=== PATIENT | female | born 1980 | race Caucasian/White ===

== ENCOUNTER 2017-06-04 19:49 | Inpatient (IN) | payer OTHER, BC ==
[~2017-06-04] VITALS: Ht 175.3 cm; Wt 61.0 kg
--- NOTE | ~2017-06-04 | HC ---
[facility] [address] [address] [place] [address] CONSULTATION Name: ENRIQUE LEACH NILO Room #: 219-P [facility] IN M.R.#: [id number] Admission: 06/04/17 Attend Phys: Osorio Smith MD Discharge: Date of : 84 Report #: [id number] THIS REPORT FOR: //name// CC: Osorio Smith NO PCP Matt Arshad DATE OF SERVICE: 06/05/2017 REASON FOR CONSULTATION: I was asked to evaluate concerning leukocytosis and pulmonary infiltrate in the setting of seizure. HISTORY OF PRESENT ILLNESS: The patient was a 36-year-old, with steroid-dependent asthma, fibromyalgia, who has presented with seizure yesterday, lasted 2-3 minutes. was home and witnessed the event. By the time EMS came, she was awake, but amnestic to the event. No tongue biting or loss of bowel and bladder function. Prior to this, she has had one seizure when she was 12 years old. She has longstanding asthma that has required every other day methylprednisolone dosing along with inhalers. She has had volume reduction surgery of the right lung in 2005 for large bleb. She has had further complications of her prednisone including cataracts, osteoporosis, bilateral total knee arthroplasties, diabetes. She has had a DVT and has longstanding fibromyalgia. No travel. No HIV risk factors. Stays at home and has 2 children and . She has not felt well for about 2 months. She was unable to describe specifically her symptoms, but she does note that her fibromyalgia has been flaring up along with nausea, occasional vomiting, occasional diarrhea, minimal dysuria. No back or flank pain. Temperature up to 99 degrees. REVIEW OF SYSTEMS: Notes mild headache. No postnasal drip. No pharyngitis symptoms. No pleuritic chest pain. No worsening of her asthma symptoms. No chest pain or palpitations. No vaginal discharge, rash, or arthritis. ALLERGIES: None known. MEDICATIONS: Xopenex, Symbicort, prednisone 6 mg every other day, Xarelto, Glucophage, Tudorza, Ultram, clonazepam, spironolactone, magnesium, Fetzima, Lipitor, diltiazem. PAST MEDICAL HISTORY: Asthma, cataracts, lung reduction surgery, osteoporosis, bilateral total knee arthroplasties, fibromyalgia, diabetes, anxiety, depression, seizure, DVT after knee surgery, UTI. FAMILY HISTORY: Noncontributory. [address] [address] CONSULTATION Name: ENRIQUE LEACH NILO Room #: 219-P [facility] IN .R.#: [id number] Admission: 06/04/17 Attend Phys: Osorio Smith MD Discharge: Date of : 84 Report #: [id number] SOCIAL HISTORY: Minimal alcohol use. Nonsmoker. REVIEW OF SYSTEMS: As noted above. PHYSICAL EXAMINATION: VITAL SIGNS: Afebrile, hemodynamically stable. GENERAL: Alert and cooperative and pleasant, in no acute distress. Mild obesity. HEENT: Unremarkable. NECK: Supple, no adenopathy. LUNGS: Clear. HEART: Regular, without murmur. ABDOMEN: Soft and nontender. No hepatosplenomegaly or mass. EXTREMITIES: Unremarkable. NEUROLOGIC: Nonfocal. LABORATORY STUDIES: Sodium 142, potassium 3.5, bicarbonate 25, creatinine 0.6. Liver function test normal. Hemoglobin 11.5, platelet count and white count 12.6. Differential unremarkable. TSH 4.9. Urinalysis 6-15 wbc's, no rbc's, many bacteria. Urine culture, gram-negative bacilli. Blood cultures negative. Influenza antigen negative. CT scan of the head showed mild pansinusitis. CT of the chest showed right basilar infiltrate without consolidation. IMPRESSION: A 36-year-old with underlying steroid-dependent asthma and fibromyalgia, presents with seizure. She has leukocytosis, asymptomatic bacteriuria, hypothyroid, chronic sinusitis. Cause of her leukocytosis may well be related to her seizure or possibly her steroid use versus pneumonia. Pneumonia would either be from aspiration following her seizure or possibly predating the seizure with community-acquired pneumonia. She, however, did not give any symptoms of pneumonia leading up to this. She had more of a nondescript exacerbation of her fibromyalgia. It is evident, she did not improve with antibiotics. I doubt influenza in this situation. No other family members have been ill and she was not toxic. RECOMMENDATION: Would continue with Unasyn to cover both sinuses, possible aspiration, and urinary tract. I agree with Neurology workup including MRI scan. It appears that she has had significant side effect issues with her chronic prednisone use. Would have followup with Pulmonary Medicine to see if there is any way of reducing her steroid usage. We will need to follow her chest x-ray and we will await final culture results from blood and urine before recommending oral antibiotic therapy. <ELECTRONICALLY SIGNED> By: Richie Pierce MD 06/06/17 0901 [id number] [id number] Richie Pierce MD /nt
--- NOTE | ~2017-06-04 | HC ---
[facility] [place] [address] [place] [address] CONSULTATION Name: ENRIQUE LEACH NILO Room #: 219-P [facility] IN M.R.#: [id number] Admission: 06/04/17 Attend Phys: Osorio Smith MD Discharge: 06/06/17 Date of : 84 Report #: [id number] THIS REPORT FOR: //name// CC: Osorio Smith NO [facility] Matt Arshad DATE OF SERVICE: 06/05/2017 HISTORY OF PRESENT ILLNESS: This is a 36-year-old female patient who was evaluated by me for a new onset seizure. I reviewed multiple notes in this patient. Apparently, this patient has not been feeling well at least for a few weeks. Significant other than described, this patient having what looks like stiffness, eyes rolling back and a seizure lasting about 2-3 minutes. It came spontaneously without any trauma. She was confused after that, but she had returned back to her baseline. REVIEW OF SYSTEMS: Indicate that she did have a seizure as a child. Not much description is available. It was associated with bronchial asthma, but was not associated with fever. She was never on any anticonvulsant. She feels she has a flu, but she does not have a flu. She does have a history of GI tract infection. She has pain syndrome, at one time, she used to be on gabapentin, but now this patient is on tramadol. She is on tramadol for some time. She does have a history of DVT that happened after knee surgery, but they left her on anticoagulation and she has been on it for 4 years. I do not know whether any documentation for hypercoagulable disorder has been found. She has no evidence of any deep vein thrombosis. I carried out 14-point review of systems and this appeared to be patient's relevant 14-point review of systems. PAST MEDICAL HISTORY: Positive for what she described as seizure-like activity. FAMILY HISTORY: Negative for epilepsy. SOCIAL HISTORY: She drinks alcohol very rarely. PHYSICAL EXAMINATION: Indicate that the patient is alert, responsive, able to follow simple and complex command. Her speech, concentration, fund of knowledge and memory is at her baseline. Cranial nerves examination 2-12 is unremarkable. She has symmetrical strength, sensation, reflexes and tones in all 4 extremities. There is no meningeal sign. There is no carotid bruit. No cardiac abnormality was detected. She has no edema, cyanosis or jaundice. Her vision and hearing looks adequate. She has no thyroid mass. Her blood pressure was 112/76, respirations was 18, pulse was 73, temperature 98.2. LABORATORY DATA: White count was 13.6. She did have a CT scan of the head, which did not show any acute abnormality. [address] [address] CONSULTATION Name: ENRIQUE LEACH NILO Room #: 219-P [facility] IN M.R.#: [id number] Admission: 06/04/17 Attend Phys: Osorio Smith MD Discharge: 06/06/17 Date of : 84 Report #: [id number] IMPRESSION: This patient does appear to have had a seizure. The cause of the seizure is not clear. She needs further workup to determine that. RECOMMENDATIONS: I had a long talk with this patient and the significant others. We will get an MRI of the brain done in this patient. We will also do an MRV. It is unlikely that she has any intracranial sinus thrombosis because she is on anticoagulation, but because of some history suggestive of hypercoagulable disorder, we will go ahead and do that. I discussed with them that they can be on anticonvulsant or wait to see if another seizure occur. I discussed with them that things can be done to decrease the possibility of having another seizure. I discussed with them that she needs to take seizure precaution and she cannot drive for 6 months. We will wait what MRI, EEG shows and rediscuss the situation with the patient again tomorrow. More than 50 minutes of time was spent taking care of this patient today and majority of that time was spent counseling the patient on above matters. Thank you very much for this referral. <ELECTRONICALLY SIGNED> By: Matt Arshad MD 06/07/17 1145 [id number] [id number] Matt Arshad MD /nt
--- NOTE | ~2017-06-04 | EEG ---
[facility] [address] [address] [address] ELECTROENCEPHALOGRAM Name: ENRIQUE LEACH Room #: 219-P [facility] IN M.R.#: [id number] Admission: 06/04/17 Attend Phys: Osorio Smith MD Discharge: 06/06/17 Date of : 84 Report #: [id number] THIS REPORT FOR: //name// CC: Osorio Smith NO PCP Matt Arshad DATE OF SERVICE: 06/05/2017 This patient is being evaluated for the possibility of seizure. EEG was done by placing the electrodes by standard 10-20 system of electrode placement. Both referential and sequential montages were used for recording. Background activity in this patient's EEG is about 10-11 Hz and 40 microvolt. This is a very well formed background activity. The patient repeatedly goes to sleep and that is associated with bilaterally symmetrical sleep spindle, vertex sharp waves and K complexes. Photic stimulation is unremarkable. Throughout the record, no clear-cut epileptiform activity was noticed. IMPRESSION: This patient's EEG does not demonstrate any clear-cut epileptiform activity. EEG can be normal in a patient with seizure disorder. This EEG and MRI were discussed with her. We talked about the medication. I started her on gabapentin, which may help her pain as well as will have anti-seizure effect. I talked to her about MRI and spinal tap. She wanted to see an epileptologist. I talked to them that they are at [facility] and . They want to make an appointment in because they go there for other medical care. They will make that appointment themselves as soon as possible. If the person has any signs of infection or any drowsiness, then they will contact us back. They will continue to take seizure precautions. <ELECTRONICALLY SIGNED> By: Matt Arshad MD 06/07/17 1146 1615 2231 Matt Arshad MD /nt
[~2017-06-04 19:49] MED LIST: ACETAMINOPHEN325 M1 PO; ALDACTONE50 MG PO; AVELOX 400 MG400 MG; AVELOX 400 MG400 MG PO; BONIVA2.5 MG PO; CARTIA XT240 M1 PO; CLONAZEPAM 1 MG1 M1 PO; COMBIVENT INH; DEPO-PROVERA; FETZIMA120 MG PO; FLOMAX0.4 MG PO; FLONASE 0.05%50 MCG NASAL; IBUPROFEN 800800 M1 PO; KEFLEX500 MG PO; LEVALBUTER1.25 MG/0. INH; LIPITOR10 MG PO; MAGOX 400400 MG PO; MEDROL4 MG PO; MEDROLDOSEPACK PO; MEDROXYPROGESTERONE INJECTION; METFORMIN HCL500 MG PO; MUCINEX600 MG; NORCO 5-325 TA1 EACH PO; NORCO 7.5-3251 EACH PO; PERCOCET PO; PHENERGAN 25 MG25 M1 PO; PREDNISONE 10 M10 M1; PREDNISONE 10 M10 M1 PO; PREDNISONE50 MG PO; PSEUDOEPHEDRINE60 M1; RAYOS2 MG PO; ROBAXIN 750 MG750 M1 PO; SINGULAIR 10 MG10 M1; SYMBICORT160 MCG/4. INH; TRAMADOL 50 MG50 MG PO; TRIAMCINOLONE16.5 GM; TUDORZA PRESS400 MCG IH; XARELTO20 MG PO; XOPENEX 1.25 MG/3 ML IH; ZPAK PO
[2017-06-04 19:51] VITALS: BP 149/106
[2017-06-04 20:22] LABS: ABSOLUTE NEUTROPHILS 8.9 thou/uL (1.4-8.2); BASOPHILS 0.8 % (0.0-2.0); HEMATOCRIT 38.8 % (37.0-47.0); HEMOGLOBIN 12.9 gm/dL (12.0-15.0); LYMPHOCYTES 15.7 % (24.0-44.0); MCH 26.9 pg (26.0-34.0); MCHC 33.3 g/dL (28.0-37.0); MCV 80.8 fL (80.0-100.0); MONOCYTES 9.8 % (1.0-8.0); PLATELET COUNT 392 thou/uL (150-400); POLYS 65.7 % (36.0-66.0); RDW 16.8 % (10.5-14.5); WBC 13.6 thou/uL (4.0-11.0)
[2017-06-04 20:25] LABS: URINE BILIRUBIN NEGATIVE (Negative); URINE BLOOD TRACE (Negative); URINE CLARITY CLEAR; URINE COLOR YELLOW; URINE GLUCOSE-RANDOM* NEGATIVE (Negative); URINE KETONES NEGATIVE (Negative); URINE LEUKOCYTES NEGATIVE (Negative); URINE NITRITE POSITIVE (Negative); URINE PROTEIN (DIPSTICK) NEGATIVE (Negative); URINE SPECIFIC GRAVITY >= 1.030 (1.005-1.035); URINE UROBILINOGEN 0.2 E.U./dl (0.2-1.0)
[2017-06-04 20:33] LABS: CREATININE 0.7 mg/dL (0.6-1.0)
[2017-06-04 20:35] LABS: AMP/METHAMP Negative (Negative); BARBITURATES Negative (Negative); BENZODIAZEPINES Negative (Negative); COCAINE Negative (Negative); METHADONE Negative (Negative); OPIATES Negative (Negative); PCP Negative (Negative)
[2017-06-04 20:39] LABS: ALBUMIN 3.3 g/dL (3.4-5.0); TOTAL BILIRUBIN 0.3 mg/dL (<0.1-1.0); TOTAL PROTEIN 6.9 g/dL (6.4-8.2)
[2017-06-04 20:40] LABS: SQUAMOUS None Seen /LPF (0-3)
[2017-06-04 20:41] LABS: BACTERIA >30 Many /HPF (None Seen); CRYSTALS None Seen /LPF (None Seen); HYALINE CASTS 4-10 Moderate /LPF (None Seen); MUCUS 4-6 Moderate strn/LPF (None Seen); URINE RBC None Seen /HPF (0-2); URINE WBC 6-15 Few /HPF (0-5)
[2017-06-04 21:32] LABS: PROTIME 9.9 Seconds (9.3-11.4)
[2017-06-05] VITALS (7 sets, daily range): BP systolic 112–140; BP diastolic 75–101
[2017-06-05 05:42] LABS: ABSOLUTE NEUTROPHILS 8.5 thou/uL (1.4-8.2); BASOPHILS 1.2 % (0.0-2.0); EOSINOPHILS 9.3 % (0.0-3.0); HEMATOCRIT 34.6 % (37.0-47.0); HEMOGLOBIN 11.5 gm/dL (12.0-15.0); LYMPHOCYTES 13.3 % (24.0-44.0); MCHC 33.2 g/dL (28.0-37.0); MCV 81.4 fL (80.0-100.0); MONOCYTES 8.5 % (1.0-8.0); PLATELET COUNT 322 thou/uL (150-400); POLYS 67.7 % (36.0-66.0); RBC 4.25 mil/uL (4.20-5.00); RDW 16.9 % (10.5-14.5); WBC 12.6 thou/uL (4.0-11.0)
[2017-06-05 05:50] LABS: CALCIUM 7.8 mg/dL (8.5-10.1); CREATININE 0.6 mg/dL (0.6-1.0); POTASSIUM 3.5 mmol/L (3.5-5.1)
[2017-06-06 04:26] VITALS: BP 134/86
[2017-06-06 05:46] LABS: HEMATOCRIT 33.7 % (37.0-47.0); HEMOGLOBIN 11.4 gm/dL (12.0-15.0); MCH 27.5 pg (26.0-34.0); MCHC 33.7 g/dL (28.0-37.0); MCV 81.7 fL (80.0-100.0); RBC 4.13 mil/uL (4.20-5.00); RDW 16.8 % (10.5-14.5); WBC 10.3 thou/uL (4.0-11.0)
[2017-06-06 05:57] LABS: CALCIUM 8.6 mg/dL (8.5-10.1); CREATININE 0.6 mg/dL (0.6-1.0); POTASSIUM 3.5 mmol/L (3.5-5.1)
[2017-06-06 07:08] VITALS: BP 138/88
[2017-06-06 11:56] VITALS: BP 141/100
[2017-06-06 15:16] VITALS: BP 113/53
[2017-06-06] MEDS ORDERED: AUGMENTIN 875-1 EACH PO (15:17)
[2017-06-06 15:20] VITALS: BP 129/88
[2017-06-06 15:31] VITALS: BP 129/88
[2017-06-07 23:06] LABS: ADENOVIRUS Negative (Negative); INFLUENZA A Negative (Negative); INFLUENZA B Negative (Negative); METAPNEUMOVIRUS Negative (Negative); PARAINFLUENZA 1 Negative (Negative); PARAINFLUENZA 2 Negative (Negative); PARAINFLUENZA 3 Negative (Negative); RHINOVIRUS Negative (Negative); RSV A Negative (Negative); RSV B Negative (Negative)
== END 2017-06-06 16:03 | disposition home or self-care (01) | DRG 871 ==
LOC: ER 19:49 → 2N 23:23 → EROBS 23:23 → 2N 06-05 00:23 → ENTRNSPT 06-06 15:52 → 2N 06-06 16:03
PROVIDERS: Hospitalist; Nurse Practitioner Family; Physician Assistant; Specialist
DX: A41.9 Sepsis, unspecified organism (principal); J69.0 Pneumonitis due to inhalation of food and vomit; E43 Unspecified severe protein-calorie malnutrition; N39.0 Urinary tract infection, site not specified; R56.9 Unspecified convulsions; J45.909 Unspecified asthma, uncomplicated; M79.7 Fibromyalgia; E11.9 Type 2 diabetes mellitus without complications; F41.9 Anxiety disorder, unspecified; F32.9 Major depressive disorder, single episode, unspecified; E78.5 Hyperlipidemia, unspecified; G89.4 Chronic pain syndrome; Z96.653 Presence of artificial knee joint, bilateral; E03.9 Hypothyroidism, unspecified; J32.9 Chronic sinusitis, unspecified; M81.0 Age-related osteoporosis without current pathological fracture; B96.1 Klebsiella pneumoniae [K. pneumoniae] as the cause of diseases classified elsewhere; Z98.41 Cataract extraction status, right eye; Z79.899 Other long term (current) drug therapy; Z86.718 Personal history of other venous thrombosis and embolism; Z79.01 Long term (current) use of anticoagulants; Z79.84 Long term (current) use of oral hypoglycemic drugs; Z87.440 Personal history of urinary (tract) infections; Z82.49 Family history of ischemic heart disease and other diseases of the circulatory system; Z79.52 Long term (current) use of systemic steroids
CPT/HCPCS: 10081

== ENCOUNTER 2017-06-09 21:54 | Emergency (ER) | payer OTHER, BC ==
[~2017-06-09] VITALS: Ht 152.4 cm; Wt 53.5 kg
--- NOTE | ~2017-06-09 | EKG ---
[place] [address] [email or web address] [employer] [id number] ELECTROCARDIOGRAM REPORT Name: ENRIQUE LEACH [id number] Admission: 06/09/17 Attend Phys: Discharge: 06/09/17 Date of : 84 Report #: [id number] THIS REPORT FOR: //name// [facility] ED Test Date: 2017-06-09 Test Time: 22:29:08 Pat Name: ENRIQUE LEACH Department: Room: Gender: F Pet Care Technician: KIKA : 1980 Requested By: Richie Ravi Order Number: [id number] MD: Jean Carrillo Measurements Intervals [place] Rate: 96 P: 57 NH: 145 QRS: 71 QRSD: 93 T: 42 QT: 348 QTc: 440 Interpretive Statements Sinus rhythm Probable left atrial enlargement Baseline wander in lead(s) V1 Compared to ECG 06/06/2011 09:02:55 Sinus tachycardia no longer present Electronically Signed On 06-10-2017 10:12:23 CASH POSTING CLERK by Jean Carrillo [email or web address] <ELECTRONICALLY SIGNED> By: Jean Carrillo MD 06/10/17 1012 2229 2229 Jean Carrillo MD /MILIND
[~2017-06-09 21:54] MED LIST changes: +AUGMENTIN 875-1 EACH PO
[2017-06-09] MEDS ORDERED: NEURONTIN 300300 M1 PO (22:10)
[2017-06-09 22:46] LABS: URINE BILIRUBIN NEGATIVE (Negative); URINE BLOOD NEGATIVE (Negative); URINE CLARITY CLEAR; URINE COLOR YELLOW; URINE GLUCOSE-RANDOM* NEGATIVE (Negative); URINE KETONES NEGATIVE (Negative); URINE NITRITE-REFLEX NEGATIVE (Negative); URINE PROTEIN (DIPSTICK) NEGATIVE (Negative); URINE UROBILINOGEN 0.2 E.U./dl (0.2-1.0)
[2017-06-09 22:55] LABS: AMP/METHAMP Negative (Negative); BARBITURATES Negative (Negative); BENZODIAZEPINES Negative (Negative); COCAINE Negative (Negative); METHADONE Negative (Negative); OPIATES Negative (Negative); PCP Negative (Negative)
[2017-06-09 22:56] LABS: URINE LEUKOCYTES-REFLEX 1+ (Negative)
[2017-06-09 23:00] LABS: HEMATOCRIT 38.4 % (37.0-47.0); HEMOGLOBIN 12.8 gm/dL (12.0-15.0); MCHC 33.2 g/dL (28.0-37.0); MCV 81.1 fL (80.0-100.0); PLATELET COUNT 360 thou/uL (150-400); RBC 4.73 mil/uL (4.20-5.00); RDW 17.1 % (10.5-14.5); WBC 9.4 thou/uL (4.0-11.0)
[2017-06-09 23:07] LABS: ANION GAP 12 mmol/L (7-16); BUN 17 mg/dL (7-18); CALCIUM 8.6 mg/dL (8.5-10.1); CHLORIDE 106 mmol/L (98-107); CO2 24 mmol/L (21-32); CREATININE 0.7 mg/dL (0.6-1.0); GLUCOSE 110 mg/dL (74-106); POTASSIUM 3.8 mmol/L (3.5-5.1); SODIUM 142 mmol/L (136-145)
[2017-06-09 23:10] LABS: CASTS None Seen /LPF (None Seen); URINE RBC 0-2 Rare /HPF (0-2)
[2017-06-09 23:11] LABS: BACTERIA-REFLEX 1-9 Few /HPF (None Seen); CRYSTALS None Seen /LPF (None Seen); SQUAMOUS >10 Many /LPF (0-3); URINE WBC-REFLEX 0-5 Rare /HPF (0-5)
[2017-06-09 23:15] LABS: ALBUMIN 3.2 g/dL (3.4-5.0); MAGNESIUM 1.5 mg/dL (1.8-2.4); SGOT 16 U/L (15-37); SGPT 20 U/L (30-65); TOTAL BILIRUBIN 0.2 mg/dL (<0.1-1.0); TOTAL PROTEIN 6.7 g/dL (6.4-8.2); TROPONIN-I < 0.04 ng/mL (<0.06)
[2017-06-09 23:43] LABS: ABSOLUTE NEUTROPHILS 5.8 thou/uL (1.4-8.2); ANISOCYTOSIS SLIGHT
[2017-06-09 23:56] VITALS: BP 127/91
== END 2017-06-09 23:58 | disposition home or self-care (01) ==
LOC: ER 21:54
PROVIDERS: Emergency Medicine
DX: G40.909 Epilepsy, unspecified, not intractable, without status epilepticus (principal); J45.909 Unspecified asthma, uncomplicated; E11.9 Type 2 diabetes mellitus without complications; M79.7 Fibromyalgia

== ENCOUNTER 2017-06-24 23:48 | Emergency (ER) | payer BC, OTHER ==
[~2017-06-24] VITALS: Ht 144.8 cm; Wt 59.0 kg
[~2017-06-24 23:48] MED LIST changes: +NEURONTIN 300300 M1 PO
[2017-06-25 01:23] LABS: URINE BILIRUBIN NEGATIVE (Negative); URINE BLOOD NEGATIVE (Negative); URINE CLARITY CLEAR; URINE COLOR YELLOW; URINE GLUCOSE-RANDOM* NEGATIVE (Negative); URINE KETONES NEGATIVE (Negative); URINE LEUKOCYTES-REFLEX NEGATIVE (Negative); URINE NITRITE-REFLEX NEGATIVE (Negative); URINE PROTEIN (DIPSTICK) NEGATIVE (Negative); URINE UROBILINOGEN 0.2 E.U./dl (0.2-1.0)
[2017-06-25 01:24] LABS: HEMATOCRIT 40.8 % (37.0-47.0); HEMOGLOBIN 13.4 gm/dL (12.0-15.0); MCH 26.7 pg (26.0-34.0); MCHC 32.8 g/dL (28.0-37.0); MCV 81.4 fL (80.0-100.0); PLATELET COUNT 396 thou/uL (150-400); RBC 5.02 mil/uL (4.20-5.00); RDW 17.4 % (10.5-14.5); WBC 10.4 thou/uL (4.0-11.0)
[2017-06-25 01:31] LABS: CALCIUM 8.8 mg/dL (8.5-10.1); CREATININE 0.7 mg/dL (0.6-1.0); POTASSIUM 3.8 mmol/L (3.5-5.1)
[2017-06-25 01:32] LABS: AMP/METHAMP Negative (Negative); BARBITURATES Negative (Negative); BENZODIAZEPINES Negative (Negative); COCAINE Negative (Negative); METHADONE Negative (Negative); OPIATES Negative (Negative); PCP Negative (Negative)
[2017-06-25 01:57] LABS: ABSOLUTE NEUTROPHILS 4.7 thou/uL (1.4-8.2); ANISOCYTOSIS 1+
[2017-06-25] MEDS ORDERED: NAPROSYN500 MG PO (02:08)
[2017-06-25] MEDS ORDERED: NORFLEX100 MG PO (02:08)
[2017-06-25 02:42] VITALS: BP 128/86
== END 2017-06-25 02:46 | disposition home or self-care (01) ==
LOC: ER 23:48
PROVIDERS: Emergency Medicine
DX: S29.012A Strain of muscle and tendon of back wall of thorax, initial encounter (principal); F41.9 Anxiety disorder, unspecified; J45.909 Unspecified asthma, uncomplicated; F32.9 Major depressive disorder, single episode, unspecified; E11.9 Type 2 diabetes mellitus without complications; M79.7 Fibromyalgia; M81.0 Age-related osteoporosis without current pathological fracture; F10.99 Alcohol use, unspecified with unspecified alcohol-induced disorder; X58.XXXA Exposure to other specified factors, initial encounter; Y93.89 Activity, other specified; Y92.89 Other specified places as the place of occurrence of the external cause; Y99.8 Other external cause status

== ENCOUNTER 2018-02-05 17:19 | Emergency (ER) | payer BC, OTHER ==
[~2018-02-05] VITALS: Ht 144.8 cm; Wt 59.0 kg
[~2018-02-05 17:19] MED LIST changes: +NAPROSYN500 MG PO; +NORFLEX100 MG PO
[2018-02-05] MEDS ORDERED: BUSPIRONE HCL10 MG PO (17:33)
[2018-02-05] MEDS ORDERED: LOSARTAN POTASS50 MG PO (17:34)
[2018-02-05] MEDS ORDERED: NEURONTIN600 MG PO (17:35)
[2018-02-05 17:57] LABS: ABSOLUTE NEUTROPHILS 8.6 thou/uL (1.4-8.2); BASOPHILS 1.1 % (0.0-2.0); EOSINOPHILS 2.1 % (0.0-3.0); HEMOGLOBIN 14.2 gm/dL (12.0-15.0); LYMPHOCYTES 19.3 % (24.0-44.0); MCH 30.1 pg (26.0-34.0); MCHC 34.6 g/dL (28.0-37.0); MONOCYTES 9.8 % (1.0-8.0); PLATELET COUNT 328 thou/uL (150-400); POLYS 67.7 % (36.0-66.0); RBC 4.71 mil/uL (4.20-5.00); WBC 12.7 thou/uL (4.0-11.0)
[2018-02-05 18:06] LABS: CALCIUM 8.7 mg/dL (8.5-10.1); CREATININE 0.6 mg/dL (0.6-1.0)
== END 2018-02-05 20:15 | disposition home or self-care (01) ==
LOC: ER 17:19
PROVIDERS: Emergency Medicine
DX: R56.9 Unspecified convulsions (principal); J45.909 Unspecified asthma, uncomplicated; M81.0 Age-related osteoporosis without current pathological fracture; M79.7 Fibromyalgia; E11.9 Type 2 diabetes mellitus without complications; F41.9 Anxiety disorder, unspecified; F32.9 Major depressive disorder, single episode, unspecified; Z86.718 Personal history of other venous thrombosis and embolism

== ENCOUNTER → 2019-04-28 | Outpatient (CLI) | payer OTHER ==
[~2019-04-28] MED LIST changes: +BUSPIRONE HCL10 MG PO; +LOSARTAN POTASS50 MG PO; +NEURONTIN600 MG PO
== END ==
LOC: RAD 10:00
DX: J98.4 Other disorders of lung (principal); J45.50 Severe persistent asthma, uncomplicated; J98.11 Atelectasis; Z88.8 Allergy status to other drugs, medicaments and biological substances; Z88.2 Allergy status to sulfonamides

== ENCOUNTER → 2019-05-19 | Outpatient (CLI) | payer OTHER | LOC: CAT | DX: R91.1 Solitary pulmonary nodule (principal); J98.4 Other disorders of lung; Z88.8 Allergy status to other drugs, medicaments and biological substances ==